=== PATIENT | male | born 1970 | race Caucasian/White ===

== ENCOUNTER → 2020-04-20 | Outpatient (CLI) | payer MEDICARE, OTHER ==
[~2020-04-20] MED LIST: ADVIL200 M1 PO; ASPIRIN EC325 MG PO; BOOST237 ML PO; BYDUREON P2 MG/0.65 SQ; CELEXA10 MG PO; CLEOCIN 150MG150 MG PO; CLEOCIN HCL300 MG PO; CLINDAMYCIN HC300 MG PO; DAKIN'S SOLUTI500 ML EXT; DAKIN'S SOLUTI500 ML TOP; ERYTHROMYCIN O3.5 GM EYERT; GABAPENTIN300 MG PO; GLUCOPHAGE XR500 MG PO; HUMALOG100 UNIT/1 SC; JUVEN PACKET1 EACH PO; LACTINEX PACKET1 PKT PO; LANTUS100 UNIT/1 SQ; LEVAQUIN750 MG PO; METFORMIN HCL500 MG PO; NAPROSYN EC 50500 MG PO; NORCO 5-325 TA1 EACH PO; NORFLEX 100 MG100 MG PO; PERCOCET 10-321 EACH PO; ROCEPHIN 22 G/50 ML INJ; TORADOL 10 MG T10 MG PO; VITAMIN C 500500 MG PO; ZYVOX600 MG PO
== END ==
LOC: EXRD 10:43
DX: R05 Cough (principal)
CPT/HCPCS: 71046

== ENCOUNTER → 2020-04-22 | Outpatient (CLI) | payer MEDICARE, OTHER ==
[2020-04-22 10:37] LABS: HEMOGLOBIN 15.4 gm/dl (14.0-17.5); RED BLOOD COUNT 5.64 M/UL (4.20-5.50); WHITE BLOOD COUNT 7.2 K/UL (4.5-11.0)
[2020-04-22 10:59] LABS: BUN/CREATININE RATIO 17 (0-10)
[2020-04-23 10:12] LABS: CREATININE, URINE 149.5 mg/dL (Not Estab.)
== END ==
LOC: LAB 09:34
PROVIDERS: Nurse Practitioner Family
DX: E11.9 Type 2 diabetes mellitus without complications (principal); E78.5 Hyperlipidemia, unspecified; E55.9 Vitamin D deficiency, unspecified; F41.9 Anxiety disorder, unspecified
CPT/HCPCS: 36415; 80053; 80061; 82043; 82570; 84439; 84443; 85025

== ENCOUNTER 2021-03-07 20:33 | Emergency (ER) | payer MEDICARE, OTHER | END 2021-03-07 22:11 | disposition home or self-care (01) | LOC: ER1 20:33 | DX: H53.9 Unspecified visual disturbance (principal); E11.9 Type 2 diabetes mellitus without complications; Z89.429 Acquired absence of other toe(s), unspecified side | CPT/HCPCS: 99283 ==

== ENCOUNTER 2021-10-17 15:16 | Emergency (ER) | payer MEDICARE, OTHER ==
[2021-10-17] MEDS ORDERED: CLEOCIN HCL300 MG PO ×2 (17:53→18:07)
== END 2021-10-17 18:06 | disposition home or self-care (01) ==
LOC: ER1 15:16
DX: L02.415 Cutaneous abscess of right lower limb (principal); E11.9 Type 2 diabetes mellitus without complications; Z89.429 Acquired absence of other toe(s), unspecified side; Z88.0 Allergy status to penicillin; Z88.1 Allergy status to other antibiotic agents
CPT/HCPCS: 99282